=== PATIENT | female | born 1955 | race Caucasian/White ===

== ENCOUNTER 2019-03-23 20:50 | Inpatient (IN) | payer MEDICAID, MEDICARE ==
[~2019-03-23] VITALS: Ht 157.5 cm; Wt 133.4 kg
[~2019-03-23 20:50] MED LIST: ALBU0.633 IH; ASPI-605 PO; ENOX40DI SQ; FAMO20TA8 PO; FERR325T23 PO; GLUC1KIT IM; INSU100C10 SQ; INSU100V7 SQ; LEVO25TA7 PO; NITR100C6 PO; PIPE3.376 IV; VALS160T2 PO
--- NOTE | 2019-03-23 21:07 | NUR ---
BIBRA39 FROM [facility] C/O VAGINAL BLEEDING X 1 DAY AND RUQ ABD PAIN X 2 MONTHS. DENIES N/V/D. HAS TRACH AND WILSON IN PLACE ENGINEERING PSYCHOLOGIST. NO ACUTE DISTRESS NOTED. SKIN CLEAN, DRY, INTACT. MADE COMFORTABLE WITH WARM BLANKETS. ON MONITOR AND READY FOR EVAL.
[2019-03-23 21:14] LABS: BASOPHILS # (AUTO) 0.1 /CMM (0.0-0.2); BASOPHILS % (AUTO) 0.5 % (0.0-2.0); EOSINOPHILS % (AUTO) 4.3 % (0.0-6.0); HEMATOCRIT 32 % (33-45); HEMOGLOBIN 10.5 g/dL (11.5-14.8); LYMPHOCYTES # (AUTO) 3.3 /CMM (0.8-4.8); LYMPHOCYTES % (AUTO) 28.8 % (20.0-44.0); MEAN CORPUSCULAR HGB CONC 33 g/dl (31.0-36.0); MEAN CORPUSCULAR VOLUME 80 fL (82-100); MONOCYTES # (AUTO) 0.8 /CMM (0.1-1.30); MONOCYTES % (AUTO) 6.6 % (2.0-12.0); NEUTROPHILS # (AUTO) 6.8 /CMM (1.8-8.9); NEUTROPHILS % (AUTO) 59.8 % (43.0-81.0); PLATELET COUNT (AUTO) 348 /CMM (150-450); RED BLOOD CELL COUNT(AUTO) 4.03 MIL/uL (4.0-5.2); WHITE BLOOD COUNT (AUTO) 11.4 K/uL (4.3-11.0)
--- NOTE | 2019-03-23 21:30 | NUR ---
MATHEMATICIAN RESEARCH AT BEDSIDE
[2019-03-23 21:31] LABS: CALCIUM, SERUM 9.5 mg/dL (8.5-10.1); CREATININE 1.5 mg/dL (0.6-1.3); POTASSIUM 4.8 mmol/L (3.5-5.1)
--- NOTE | 2019-03-23 21:34 | NUR ---
URINE SPECIMEN SENT TO STAT LAB
[2019-03-23 21:37] LABS: APPEARANCE,URINE Slightly Cloudy (CLEAR); BILIRUBIN,URINE Negative (NEGATIVE); BLOOD, URINE Small Ery/uL (NEGATIVE); COLOR,URINE Light yellow (YELLOW); KETONES,URINE Negative (NEGATIVE); LEUKOCYTE ESTERASE ,URINE Moderate (NEGATIVE); NITRITE, URINE Positive (NEGATIVE); PROTEIN,URINE 30 mg/dl (NEGATIVE); UGLUCOSE Negative (NEGATIVE); UROBILINOGEN,URINE 0.2 EU/dL (0.2)
[2019-03-23 21:37] LABS: ALBUMIN 3.4 g/dL (3.4-5.0); BILIRUBIN,DIRECT 0.1 mg/dL (0.0-0.2); BILIRUBIN,TOTAL 0.1 mg/dL (0.2-1.0)
[2019-03-23 21:47] LABS: BACTERIA,URINE None seen /HPF (None Seen); SQUAMOUS EPITHELIAL CELL,UR Few /HPF (None Seen)
[2019-03-23] MEDS ORDERED: IV NS 0.9% 1,000 ML BAG IV ONE (22:00)
--- NOTE | 2019-03-23 22:19 | NUR ---
BED ASSIGNMENT 320-1
--- NOTE | 2019-03-23 22:30 | NUR ---
IV ACCESS OBTAINED. IVF INFUSING. PT EVERARDO WELL. WILL CONT TO MONITOR.
[2019-03-23] MEDS ORDERED: IV NS 0.9% 1,000 ML IV PRN (22:33)
[2019-03-23] MEDS ORDERED: MORPHINE SULFATE INJ 2 MG/ML DISP.SYRIN IV PRN (23:00)
[2019-03-23] MEDS ORDERED: ACETAMINOPHEN 325 MG TABLET PO PRN (23:00)
[2019-03-23] MEDS ORDERED: ALBUTEROL FS 2.5 MG/3 ML VIAL.NEB NEB PRN (23:00)
[2019-03-23] MEDS ORDERED: HYDROCODONE/APAP 5/325MG 1 EACH TABLET PO PRN (23:00)
[2019-03-23] MEDS ORDERED: MAG HYDROX/AL HYDROX/SIMETH 30 ML UDC PO PRN (23:00)
[2019-03-23] MEDS ORDERED: IPRATROPIUM NEB FS 0.5 MG/2.5 ML AMPUL.NEB NEB PRN (23:00)
[2019-03-23] MEDS ORDERED: DEXTROSE 50%-WATER 50 ML DISP.SYRIN IV PRN (23:00)
[2019-03-23] MEDS: CEFTRIAXONE 1 G in IV D5W 50 ML IV SCH (23:00)
[2019-03-23] MEDS ORDERED: BISACODYL SUPP (10 MG) 10 MG/SUPP.RECT SUPP.RECT RC PRN (23:00)
[2019-03-23] MEDS ORDERED: MAGNESIUM HYDROXIDE 30 ML UDC PO PRN (23:00)
[2019-03-23] MEDS ORDERED: ONDANSETRON HCL/PF 4 MG/2 ML VIAL IVP PRN (23:00)
--- NOTE | 2019-03-23 23:03 | NUR ---
REPORT GIVEN TO ROMEO PARKER FOR 320-1 MS
--- NOTE | 2019-03-23 23:10 | NUR ---
RECEIVED PATIENT FROM ED VIA GURNEY IN STABLE CONDITION. PATIENT NON AMBULATORY, AWAKE, AND A/O X4. SHILEY 6 TRACH INTACT AND PATENT. PATIENT ABLE TO VERBALIZE NEEDS WITH PMV IN PLACE. PERIPHERAL LINE IN RAC #20 GAUGE INTACT AND PATENT. FC 18FR INTACT, PATENT, AND DRAINING 300ML CLOUDY YELLOW URINE. PATIENT NOTED WITH MINIMAL AMOUNT DARK RED VAGINAL BLEEDING WITH NO CLOTS, SATURATING 20% OF PERINEAL PAD. PRN TYLENOL 650MG GIVEN FOR C/O RUQ 3/10 ACHING PAIN, WILL MONITOR FOR EFFECTIVENESS. ENCOURAGED USE OF CALL LIGHT FOR ASSISTANCE AND VERBALIZED GOOD UNDERSTANDING. BED IN LOW LOCK SETTING. ALL BELONGINGS KEPT NEAR BEDSIDE. WILL CONTINUE TO MONITOR.
--- NOTE | 2019-03-23 23:18 | NUR ---
[facility]
[2019-03-23 23:45] VITALS: BP 111/65
--- NOTE | 2019-03-23 23:49 | NUR ---
TRACH PT WAS ADMITTED TO [facility]. PT WAS ON ROOM AIR WITH PMV. SHE IS AWAKE AND ALERT. PLACED PT ON COOL AEROSOL AT 5L ON 28%. PMV PLACED AT BEDSIDE. WILL CONT TO MONITOR PT. Addendum: 03/24/19 at 0026 by REENA HERNANDEZ RT Amended: Links added.
[2019-03-24] MEDS ORDERED: CEFTRIAXONE 1 G VIAL ONE (00:17)
[2019-03-24] MEDS ORDERED: Z GUARD REMEDY 2 OZ OINT TP PRN (02:00)
[2019-03-24 06:19] LABS: BASOPHILS # (AUTO) 0.1 /CMM (0.0-0.2); BASOPHILS % (AUTO) 0.7 % (0.0-2.0); EOSINOPHILS % (AUTO) 4.1 % (0.0-6.0); HEMATOCRIT 28 % (33-45); HEMOGLOBIN 9.1 g/dL (11.5-14.8); LYMPHOCYTES # (AUTO) 2.8 /CMM (0.8-4.8); LYMPHOCYTES % (AUTO) 27.3 % (20.0-44.0); MEAN CORPUSCULAR HGB CONC 33 g/dl (31.0-36.0); MEAN CORPUSCULAR VOLUME 80 fL (82-100); MONOCYTES # (AUTO) 0.7 /CMM (0.1-1.30); MONOCYTES % (AUTO) 7.3 % (2.0-12.0); NEUTROPHILS # (AUTO) 6.2 /CMM (1.8-8.9); NEUTROPHILS % (AUTO) 60.6 % (43.0-81.0); PLATELET COUNT (AUTO) 327 /CMM (150-450); RED BLOOD CELL COUNT(AUTO) 3.48 MIL/uL (4.0-5.2); WHITE BLOOD COUNT (AUTO) 10.2 K/uL (4.3-11.0)
[2019-03-24 06:28] LABS: CALCIUM, SERUM 8.8 mg/dL (8.5-10.1); CREATININE 1.4 mg/dL (0.6-1.3); MAGNESIUM 2.3 mg/dL (1.8-2.4); PHOSPHORUS 4.3 mg/dL (2.5-4.9); POTASSIUM 5.1 mmol/L (3.5-5.1)
--- NOTE | 2019-03-24 06:41 | NUR ---
MS RN NOTES PATIENT AWAKE IN BED WITH NO DISTRESS NOTED. CALL LIGHT WITHIN REACH. ALL DUE MEDS GIVEN ORDERED WITH NO ASE NOTED. TRACH INTACT AND PATENT, ON 28% COOL AEROSOL AT 5LPM. PERIPHERAL LINE INTACT AND PATENT. NO C/O PAIN OR DISCOMFORT. PERINEAL PAD SATURATED WITH 10% BRIGHT RED BLOOD. FC INTACT AND DRAINED 850ML SLIGHTLY CLOUDY YELLOW URINE. BED IN LOW LOCK SETTING. ALL BELONGINGS AT NEAR BEDSIDE. WILL ENDORSE TO ONCOMING SHIFT.
[2019-03-24 08:00] VITALS: BP 117/49
--- NOTE | 2019-03-24 08:00 | NUR ---
RN NOTES RECEIVED PATIENT IN THE BED AWAKE , A/O X3 SITTING IN THE BED. PATIENT ON TRACHEA TUBE, BUT STABLE AND ABLE TO TALK AND EXPRESS SELF. NO ACUTE RESPIRATORY DISTRESS, V/S TAKEN WNL, BS-145 MG/DL NO COVERAGE GIVEN BECAUSE PATIENT NPO OF CT ABDOMEN EXAMINATION. ADMINISTERED SCHEDULED MEDICATION. PATIENT OBESE, ASSIST TURN AND REPOSTION Q 2 HR, NO VAGINAL BLEEDING AT THIS TIME, F/C DARNING LIGHT YELLOW OUTPUT, IV ACCESS ON RIGHT FA INFUSING NS AT 75 ML/HR INTACT . PATIENT REFUSED PAIN. CALL LIGHT WITHIN TO REACH, SAFETY PRECAUTION MAINTAINED ALL THE TIME.
[2019-03-24] MEDS ORDERED: HEPARIN SODIUM, PORCINE 5000 UNITS/1 ML VIAL SQ SCH (09:00)
[2019-03-24] MEDS: BLOOD SUGAR DIAGNOSTIC 1 EACH STRIP IN SCH ×4 (09:19→21:45)
[2019-03-24] MEDS: ASPIRIN EC 81 MG TABLET.DR PO SCH ×2 (09:43→18:04)
[2019-03-24] MEDS: FAMOTIDINE (20 MG) 20 MG TABLET PO SCH (09:43)
[2019-03-24] MEDS: FERROUS SULFATE (325 MG) 325 MG/TAB TABLET PO SCH (09:43)
[2019-03-24] MEDS: LEVOTHYROXINE SODIUM 25 MCG TABLET PO SCH (09:43)
[2019-03-24] MEDS: DOCUSATE SODIUM 100 MG CAPSULE PO SCH ×2 (09:43→18:07)
[2019-03-24] MEDS: Z GUARD REMEDY 2 OZ OINT TP SCH ×2 (09:44→21:45)
--- NOTE | 2019-03-24 12:02 | NUR ---
WOUND CARE CONSULT: PT PRESENTS WITH MOISTURE ASSOCIATED SKIN IRRITATION TO RT ABDOMINAL FOLD, SACRAL, BUTTOCK AND POSTERIOR THIGH SCARRING, PRESENT ON ADMISSION. NO VAGINAL BLEEDING NOTED AT THIS TIME. WILSON CATH NOTED. TRACH NOTED. PT ABLE TO ASSIST WITH TURNING AND REPOSITIONING IN BED. PT IS CONTINENT AT THIS TIME WITH WILSON. PT ON HOLDEN ISOFLEX LOW AIRLOSS BED. RECOMMENDATIONS MADE FOR SKIN PROTECTION. DISCUSSED WITH NURSING STAFF. WILL SEE PRN. Addendum: 03/24/19 at 1205 by JUDITH FREY WNDNU Amended: Links added.
--- NOTE | 2019-03-24 12:40 | NUR ---
RN NOTES PATIENT HYDROELECTRIC PLANT MAINTAINER FOR CT OF ABDOMEN WO CONTRAST. PATIENT STABLE, FIX TRACHEA OXYGENATION CONNECTED WITH O2 TANK MANUALLY HELP OF RT. CONTINUED MONITORING.
--- NOTE | 2019-03-24 13:00 | NUR ---
RN NOTES PATIENT BACK FROM CT, STABLE CONNECTED BACK TO MAIN TRACHEA O2, NO ACUTE REPARATORY DISTRESS, BS-111 MG/DL NO COVERAGE GIVEN, LUNCH OFFERED PATIENT TOLERATED 100 %. ASSIST PATIENT TURN AND REPOSTION Q 2 HR. PATIENT REFUSED PAIN.
[2019-03-24 16:00] VITALS: BP 131/51
--- NOTE | 2019-03-24 18:30 | NUR ---
RN NOTES BS-123 MG/DL NO COVERAGE GIVEN, PATIENT TOLERATED 20% ON DINNER, ADMINISTERED SCHEDULED MEDICATION, V/S STABLE, F/C DRAINING LIGHT YELLOW OUTPUT, ASSIST TURN AND REPOSTION Q 2 HR, CALL LIGHT WITHIN TO REACH. ENDORSED ONCOMING NURSE FOLLOW PLAN OF CARE.
--- NOTE | 2019-03-24 19:57 | NUR ---
ROMEO INITIAL NOTES: RECEIVED REPORT FROM LAMINE WALTERS. PT IN BED, AWAKE, A/O X4, ON 5L COOL AEROSOL, FIO2 20%, TRACHE, SHILEY #6. RESPIRATIONS EVEN AND UNLABORED. PT ABLE TO SPEAK WITH PASSY-ABRAHAM VALVE. ABLE TO MAKE HER NEEDS KNOWN. RECEIVED WITH WILSON CATHETER, DRAINING TO YELLOW COLORED URINE. IV ACCESS PATENT AND FLUSHING WELL, ON HL. BLE OFFLOADED. DISCUSSED PLAN OF CARE TO PT. SAFETY PRECAUTIONS FOR FALL INITIATED, CALL LIGHT IN REACH, WILL CONTINUE MONITORING PT. Addendum: 03/25/19 at 0027 by KARLEE PA RN CORRECTION OF ENTRY: FIO2 28%
--- NOTE | 2019-03-24 19:57 | NUR ---
RN INITIAL NOTES: RECEIVED REPORT FROM LAMINE WALTERS. PT IN BED, AWAKE, A/O X4, ON 5L COOL AEROSOL, FIO2 28%, TRACHE, SHILEY #6. RESPIRATIONS EVEN AND UNLABORED. PT ABLE TO SPEAK WITH PASSY-ABRAHAM VALVE. ABLE TO MAKE HER NEEDS KNOWN. RECEIVED WITH WILSON CATHETER, DRAINING TO YELLOW COLORED URINE. IV ACCESS PATENT AND FLUSHING WELL, ON HL. BLE OFFLOADED. DISCUSSED PLAN OF CARE TO PT. SAFETY PRECAUTIONS FOR FALL INITIATED, CALL LIGHT IN REACH, WILL CONTINUE MONITORING PT.
[2019-03-24 20:00] VITALS: BP 105/49
[2019-03-24] MEDS: INSULIN GLARGINE, 100 UNIT/ML CARTRIDGE SQ SCH (21:45)
--- NOTE | 2019-03-24 21:46 | NUR ---
ACCU CHECK: BLOOD SUGAR 117, NO INSULIN COVERAGE GIVEN PER SLIDING SCALE, PT REFUSED FOR LANTUS
--- NOTE | 2019-03-24 22:03 | NUR ---
RN NOTES: P[T CONNECTED TO SPO2 CONTINUOS MONITORING SPO2 IS 98%
[2019-03-24] MEDS: CEFTRIAXONE 1 G in IV D5W 50 ML IV SCH (22:09)
--- NOTE | 2019-03-24 22:30 | NUR ---
RN NOTES: PT REQUESTED TO BE SUCTION, RT AT BED SIDE PERFORMING SUCTION VIA TRACHE
--- NOTE | 2019-03-25 00:25 | NUR ---
RN NOTES: PT SLEEPING, APPEARS CALM AND COMFORTABLE, NO FACIAL GRIMACE NOTED, SPO2 SHOWS 95%, HR 72. WILL CONTINUE MONITORING PT.
[2019-03-25] MEDS: BLOOD SUGAR DIAGNOSTIC 1 EACH STRIP IN SCH ×4 (06:14→21:40)
[2019-03-25] MEDS: INSULIN REGULAR, HUMAN 100 UNIT/ML 3 ML VIAL SQ PRN (06:16)
[2019-03-25] MEDS: HEPARIN SODIUM, PORCINE 5000 UNITS/1 ML VIAL SQ SCH ×2 (06:17→17:11)
--- NOTE | 2019-03-25 06:18 | NUR ---
ACCU CHECK 135: BLOOD SUGAR CHECK PERFORMED RESULT IS 135, 2UNITS OF INSULIN GIVEN PER SLIDING SCALE.
[2019-03-25] MEDS: LEVOTHYROXINE SODIUM 25 MCG TABLET PO SCH (06:33)
[2019-03-25 06:38] LABS: CREATININE 1.2 mg/dL (0.6-1.3); MAGNESIUM 2.3 mg/dL (1.8-2.4); POTASSIUM 4.3 mmol/L (3.5-5.1)
--- NOTE | 2019-03-25 06:46 | NUR ---
RN CLOSING NOTES: PT IN BED, AWAKE, TOLERATING COOL AEROSOL. IV ACCESS REMAINS PATENT AND FLUSHING WELL, ON HL. DENIES ANY SOB OR CHEST PAIN. WILSON CATHETER REMAINS IN PLACED. BAG EMPTIED BY CONTINUOUS STILL OPERATOR. VS REMAINS STABLE, NEEDS ATTENDED. SAFETY PRECAUTIONS FOR FALL REMAINS ENGAGED, CALL LIGHT IN REACH, WILL ENDORSE TO DAY RN FOR CONTINUITY OF CARE.
[2019-03-25 06:59] LABS: BASOPHILS # (AUTO) 0.1 /CMM (0.0-0.2); BASOPHILS % (AUTO) 0.6 % (0.0-2.0); EOSINOPHILS % (AUTO) 3.9 % (0.0-6.0); HEMATOCRIT 27 % (33-45); HEMOGLOBIN 8.9 g/dL (11.5-14.8); LYMPHOCYTES # (AUTO) 2.8 /CMM (0.8-4.8); LYMPHOCYTES % (AUTO) 31.8 % (20.0-44.0); MEAN CORPUSCULAR HGB CONC 33 g/dl (31.0-36.0); MEAN CORPUSCULAR VOLUME 79 fL (82-100); MONOCYTES # (AUTO) 0.7 /CMM (0.1-1.30); MONOCYTES % (AUTO) 7.6 % (2.0-12.0); NEUTROPHILS % (AUTO) 56.1 % (43.0-81.0); PLATELET COUNT (AUTO) 309 /CMM (150-450); RED BLOOD CELL COUNT(AUTO) 3.43 MIL/uL (4.0-5.2); WHITE BLOOD COUNT (AUTO) 8.9 K/uL (4.3-11.0)
--- NOTE | 2019-03-25 07:35 | NUR ---
MS/RN OPENING NOTE PATIENT IN BED IN STABLE CONDITION. A/O X 4. NO SIGNS OF ACUTE DISTRESS. NO COMPLAIN OF PAIN OR DISCOMFORT. TRACH DEPENDENT, ON COOL AEROSOL WITH FIO2 OF 28%, TOLERATING WELL. ALL NEEDS ATTENDED TO. CALL LIGHT WITHIN REACH. WILL CONTINUE TO MONITOR TO ENSURE SAFETY.
[2019-03-25 08:00] VITALS: BP 119/59
[2019-03-25 08:02] VITALS: BP 119/59
[2019-03-25] MEDS: FAMOTIDINE (20 MG) 20 MG TABLET PO SCH (08:10)
[2019-03-25] MEDS: ASPIRIN EC 81 MG TABLET.DR PO SCH (08:10)
[2019-03-25] MEDS: FERROUS SULFATE (325 MG) 325 MG/TAB TABLET PO SCH (08:10)
[2019-03-25] MEDS: DOCUSATE SODIUM 100 MG CAPSULE PO SCH ×2 (08:10→17:08)
[2019-03-25] MEDS: Z GUARD REMEDY 2 OZ OINT TP SCH ×2 (08:11→21:50)
--- NOTE | 2019-03-25 11:00 | NUR ---
MS/RN SEEN AND EXAMINED BY DR MORROW.
[2019-03-25 16:00] VITALS: BP 116/56
--- NOTE | 2019-03-25 18:10 | NUR ---
MS/RN CLOSING NOTE PATIENT IN BED IN STABLE CONDITION. A/O X 4. NO SIGNS OF ACUTE DISTRESS. NO COMPLAIN OF PAIN OR DISCOMFORT. TRACH DEPENDENT ON COOL AEROSOL WITH FIO2 OF 28% TOLERATING WELL, INNER CANNULA CHANGED BY R.T. TOLERATED WELL. ALL NEEDS ATTENDED TO. CALL LIGHT WITHIN REACH. WILL ENDORSE TO NEXT SHIFT FOR CONTINUITY OF CARE.
--- NOTE | 2019-03-25 19:15 | NUR ---
rn initial notes: received report from mihaela tran. pt in bed, awake, a/o x4, with trache on cool aerosol 5L fio2 28%, on spo2 monitoring showing 95%. pt claimed to have no pain, but admits she's feeling sore on ruq area. offered medication but pt refused. she also reported that her iv access seems to be swollen, requesting for new iv line. upon assessment, its really difficult to determine if there's any presence of swelling on the site because of the nature of pt's skin and built. informed pt if she's uncomfortable with her iv, it will be remove and will insert a new one, which pt agree. discussed plan of care to pt. safety precautions for fall initiated, call light in reach, will continue monitoring pt.
[2019-03-25 20:00] VITALS: BP 143/61
--- NOTE | 2019-03-25 20:00 | NUR ---
RN NOTES: REINSERTED NEW IV ACCESS WITH THE HELP OF VEIN FINDER, NEW IV SITE ON LFA USING G, WITH GOOD BLOOD RETURN NOTED, TRANSPARENT DRESSING APPLIED, PROPER LABEL ATTACHED.
[2019-03-25 20:16] VITALS: BP 143/61
--- NOTE | 2019-03-25 21:30 | NUR ---
chelsea notes: pt's urine has very strong odor, urine culture secured and prelim result gram negative rods Addendum: 03/25/19 at 2315 by KARLEE PA RN correction of entry: final culture in placed, result is mixed contaminants, please see microbiology tab
--- NOTE | 2019-03-25 21:40 | NUR ---
accu check: blood sugar result is 124, no insulin coverage given per sliding scale.
[2019-03-25] MEDS: INSULIN GLARGINE, 100 UNIT/ML CARTRIDGE SQ SCH (21:41)
--- NOTE | 2019-03-25 22:00 | NUR ---
RN NOTES: OFFERED TO BE REPOSITION AT THIS TIME. PT REFUSED, STATED SHE'S SCARED OF TURNING ON SIDE BECAUSE SHE'S FEELING SORE ON HER ABDOMEN AREA. INFORMED PT THAT RN AND RUBBER GOODS FINISHER WILL ASSIST HER IN REPOSITIONING TO EASEN UP THE PROCESS. PT STILL REFUSED. EDUCATE PT REGARDING IMPORTANCE OF REPOSITIONING IN ORDER TO PREVENT DEVELOPMENT OF REDNESS TURNED INTO PRESSURE ULCERS.
[2019-03-25] MEDS: CEFTRIAXONE 1 G in IV D5W 50 ML IV SCH (22:04)
--- NOTE | 2019-03-25 23:06 | NUR ---
chelsea notes: sponge bath provided by terminal make up operator at this time.
--- NOTE | 2019-03-26 | NUR ---
RN NOTES: PT REFUSED TO BE REPOSITION AT THIS TIME, STATED SHE'S COMFORTABLE IN HER POSITION. EDUCATION PROVIDED TO PT REGARDING TURNING AND REPOSITIONING Q2HRS TO PREVENT PRESSURE ULCER DEVELOPMENT.
--- NOTE | 2019-03-26 05:00 | NUR ---
RN NOTES: PT CALLED AND COMPLAINED THAT HER NEW IV SITE IS HURTING CLAIMED SHE'S UNCOMFORTABLE, AND REQUESTING TO HAVE IT CHANGE. PT HARD TO STICK. USING VEIN FINDER, I WAS ABLE TO INSERT NEW IV ACCESS ON RIGHT UPPER ARM USING G24, WITH GOOD BLOOD RETURN NOTED, PROPER LABEL ATTACHED. PT REQUESTING TO SWITCH THE IV ATB INTO ORAL PILL, AND IF THAT'S NOT POSSIBLE, TO HAVE A MIDLINE. WILL DEFER TO MD.
[2019-03-26] MEDS: BLOOD SUGAR DIAGNOSTIC 1 EACH STRIP IN SCH ×3 (05:58→16:23)
[2019-03-26] MEDS: HEPARIN SODIUM, PORCINE 5000 UNITS/1 ML VIAL SQ SCH ×2 (05:59→17:08)
[2019-03-26] MEDS: INSULIN REGULAR, HUMAN 100 UNIT/ML 3 ML VIAL SQ PRN (06:00)
--- NOTE | 2019-03-26 06:00 | NUR ---
ACCU CHECK 131: BLOOD SUGAR CHECK AND RESULT IS 131, PT REFUSED FOR INSULIN STATED HER GLUCOSE ONLY UP BY 1 POINT. EDUCATION PROVIDED TO PT. WILL CONTINUE MONITORING PT FOR ANY S/S OF HYPOGLYCEMIA
--- NOTE | 2019-03-26 06:08 | NUR ---
RN NOTES: OFFERED BED BATH TO PT BUT PT REFUSED, STATED SHE WOULD LIKE TO HAVE IT DONE AFTER BREAKFAST.
--- NOTE | 2019-03-26 07:03 | NUR ---
RN CLOSING NOTES: PT IN BED, AWAKE, REMAINS CONNECTED TO CONTINUOUS PULSE OXIMETRY, SPO2 95% ON 5L COOL AEROSOL/FIO2 28%. IV ACCES REMAINS PATENT AND FLUSHING WELL, ON HL. PT DENIES ANY PAIN OR DISCOMFORT AT THIS TIME. WILSON CATHETER REMAINS IN PLACED, BAG EMPTIED BY FUNERAL LOCATION MANAGER,, URINE REMAINS TO HAVE STRONG ODOR. NO VAGINAL BLEEDING NOTED THROUGHOUT THE SHIFT. BLE OFFLOADED. SAFETY PRECAUTIONS FOR FALL INITIATED, CALL LIGHT IN REACH, WILL ENDORSE TO DAY RN FOR CONTINUITY OF CARE.
[2019-03-26 08:00] VITALS: BP 126/57
--- NOTE | 2019-03-26 08:00 | NUR ---
MS ROMEO AM notes: Received pt in bed, awake, a/o x4, with trache on cool aerosol 5L fio2 28%, on spo2 monitoring showing 95%. pt claimed to have no pain,With BERNARD heplock intact and patent.With orders for discharge back to [facility]. Discussed plan of care to pt. safety precautions for fall initiated, call light in reach, will continue monitoring pt.
[2019-03-26] MEDS: DOCUSATE SODIUM 100 MG CAPSULE PO SCH ×2 (08:20→16:23)
[2019-03-26] MEDS: ASPIRIN EC 81 MG TABLET.DR PO SCH (08:20)
[2019-03-26] MEDS: LEVOTHYROXINE SODIUM 25 MCG TABLET PO SCH (08:20)
[2019-03-26] MEDS: FERROUS SULFATE (325 MG) 325 MG/TAB TABLET PO SCH (08:20)
[2019-03-26] MEDS: Z GUARD REMEDY 2 OZ OINT TP SCH (08:21)
[2019-03-26] MEDS: FAMOTIDINE (20 MG) 20 MG TABLET PO SCH (08:21)
--- NOTE | 2019-03-26 12:05 | NUR ---
PT'S BS IS 137 AND PT REFUSED INSULIN INSPITE OF EXPLAINING ITS RISKS AND BENEFITS.
--- NOTE | 2019-03-26 12:38 | NUR ---
CALLED IN REPORT TO NURSEDEVI OF [facility] ([phone].INSTRUCTED TO FOLLOW UP WITH MILLED RUBBER TENDER REGARDING PT'S VAGINAL BLEEDING FOLLOW UP WHEREIN PT NEVER HAD EPISODE IN OUR UNIT.ALSO INSTRUCTED TO FOLLOW UP WITH PMD IN ONE WEEK WELL.GAVE INSTRUCTIONS TO ADMINISTER KEFLEX 500 MG PO TID FOR 4 DAYS FOR UTI PRESCRIBED.
--- NOTE | 2019-03-26 13:07 | NUR ---
DISCHARGE INSTRUCTIONS GIVEN TO THE PT AND MENTIONED ABOUT KEFLEX 500 MG PO TID FOR 4 DAYS FOR UTI. PT VERBALIZED HAVING DIARRHEA WITH KEFLEX INSPITE OF EXPLAINING THAT SHE ONLY HAS IODINE AND LEMON ALLERGY.PT REFUSED TO TAKE THE KEFLEX SAYING SHE HAS DIARRHEA WITH KEFLEX.UPDATED PT'S ALLERGY PROFILE AND PAGED DR NORTH.AWAITING TO RETURN CALL.
--- NOTE | 2019-03-26 13:30 | NUR ---
PT DIDN'T HAVE ANY REACTION WITH ROCEPHIN IV.NO DIARRHEA OR ADVERSE REACTION EPISODE DURING ROCEPHIN IV ADMINISTRATION.
[2019-03-26 16:00] VITALS: BP 140/51
--- NOTE | 2019-03-26 19:00 | NUR ---
DISCHARGED PT TO [facility] VIA AMBULANCE WITH STABLE V/S,DENYING ANY PAIN OR DISTRESS WITH CONTINUOUS TRACH COOL AEROSOL AT 5L/MIN AND FI02 AT 28% WITH NO SOB.CALLED AND GAVE REPORT TO ROMEO QUINONEZ OF [facility] AND MENTIONED ABOUT THE BACTRIM DS PO ATB FOR UTI.WITH WILSON CATH REMAINS AND EMPTIED AT 800 ML YELLOW URINE.IV H/L REMOVED TO BERNARD WITHOUT BLEEDING NOTED.
== END 2019-03-26 18:50 | DRG 463 ==
LOC: ER 21:00 → MED 22:26
PROVIDERS: ADMIT Nurse Practitioner Acute Care; ATTEND Nurse Practitioner Acute Care
DX: N39.0 Urinary tract infection, site not specified (principal); N17.0 Acute kidney failure with tubular necrosis; J96.10 Chronic respiratory failure, unspecified whether with hypoxia or hypercapnia; E44.0 Moderate protein-calorie malnutrition; Z93.0 Tracheostomy status; N93.9 Abnormal uterine and vaginal bleeding, unspecified; D68.59 Other primary thrombophilia; E11.9 Type 2 diabetes mellitus without complications; E03.9 Hypothyroidism, unspecified; I10 Essential (primary) hypertension; J44.9 Chronic obstructive pulmonary disease, unspecified; K21.9 Gastro-esophageal reflux disease without esophagitis; Z99.3 Dependence on wheelchair; Z90.49 Acquired absence of other specified parts of digestive tract; Z98.890 Other specified postprocedural states; Z91.041 Radiographic dye allergy status; Z79.4 Long term (current) use of insulin; Z79.82 Long term (current) use of aspirin; Z87.891 Personal history of nicotine dependence; Z74.01 Bed confinement status; N28.1 Cyst of kidney, acquired; K59.09 Other constipation; B96.89 Other specified bacterial agents as the cause of diseases classified elsewhere; Z74.09 Other reduced mobility; E66.2 Morbid (severe) obesity with alveolar hypoventilation; Z68.43 Body mass index [BMI] 50.0-59.9, adult
CPT/HCPCS: 31720; 36415; 71045-TC; 76856-TC; 80048-TC; 80061-TC; 80076-TC; 81000-TC; 82962-TC; 83690-TC; 83735-TC; 84100-TC; 85025-TC; 85730-TC; 87081-TC; 87086-TC; 94640-TC; 94760-TC; 94799-TC; A4623; A7526; G0378; J0696; J1644; J1815; J7030; J7060

== ENCOUNTER 2019-11-05 00:18 | Emergency (ER) | payer MEDICARE, OTHER ==
[~2019-11-05] VITALS: Ht 172.7 cm; Wt 136.1 kg
--- NOTE | 2019-11-05 00:30 | NUR ---
PT AAOX3. BIB88. PER RA PT WAS DESAT @ 65% DESPITE 02 VIA NC @ 2LPM. PT HAS A TRACHEOSTOMY. PT WAS PLACED ON A NON REBREATHER BY RA AT 15L SAT 100%. PT PLACED ON MONITOR AND PULSE OX. VSS. NO ACUTE DISTRESS NOTED.
--- NOTE | 2019-11-05 00:40 | NUR ---
RT AT BEDSIDE. PT SUCTIONED AND RR EVEN AND UNLABORED AT THE MOMENT. VSS. PLACED ON 6L. SAT 100%. PT ALERT AND FOLLOWING COMMANDS.
--- NOTE | 2019-11-05 00:45 | NUR ---
PT SAT 100. PT RESPONSIVE. VSS.
--- NOTE | 2019-11-05 00:50 | NUR ---
DATA SUPPORT SPECIALIST AT BEDSIDE FOR LABS.
[2019-11-05 00:55] LABS: BASOPHILS % (AUTO) 0.4 % (0.0-2.0); EOSINOPHILS % (AUTO) 1.6 % (0.0-6.0); HEMATOCRIT 34 % (33-45); HEMOGLOBIN 10.8 g/dL (11.5-14.8); LYMPHOCYTES # (AUTO) 2.6 /CMM (0.8-4.8); LYMPHOCYTES % (AUTO) 24.6 % (20.0-44.0); MEAN CORPUSCULAR HGB CONC 32 g/dl (31.0-36.0); MEAN CORPUSCULAR VOLUME 83 fL (82-100); MONOCYTES # (AUTO) 0.9 /CMM (0.1-1.30); MONOCYTES % (AUTO) 8.7 % (2.0-12.0); NEUTROPHILS # (AUTO) 6.8 /CMM (1.8-8.9); NEUTROPHILS % (AUTO) 64.7 % (43.0-81.0); PLATELET COUNT (AUTO) 242 /CMM (150-450); RED BLOOD CELL COUNT(AUTO) 4.04 MIL/uL (4.0-5.2); WHITE BLOOD COUNT (AUTO) 10.5 K/uL (4.3-11.0)
[2019-11-05 01:07] LABS: CARBON DIOXIDE 27 mmol/L (21-32); CHLORIDE 101 mmol/L (98-107); CREATININE 1.4 mg/dL (0.6-1.3); GLUCOSE 307 mg/dL (74-106); POTASSIUM 4.6 mmol/L (3.5-5.1); SODIUM SERUM 137 mmol/L (136-145); UREA NITROGEN, BLOOD 33 mg/dL (7-18)
--- NOTE | 2019-11-05 01:17 | NUR ---
Patient is resting comfortably in bed. Easily aroused. VSS.
[2019-11-05 01:21] LABS: ALANINE AMINOTRANSFERASE 53 U/L (12-78); ALBUMIN 3.3 g/dL (3.4-5.0); ALKALINE PHOSPHATASE 134 U/L (46-116); ASPARTATE AMINOTRANSFERASE 46 U/L (15-37); B-TYPE NATRIURETIC PEPTIDE 404 PG/ML (0-125); BILIRUBIN,TOTAL 0.3 mg/dL (0.2-1.0); TOTAL PROTEIN, SERUM 8.2 g/dL (6.4-8.2)
--- NOTE | 2019-11-05 01:32 | NUR ---
[facility] CALLED FOR TRANSPORT. ETA 0330. TRIP# [id number]
--- NOTE | 2019-11-05 02:30 | NUR ---
IV removed. Catheter intact and site benign. Pressure and 4x4 applied to site. No bleeding noted.
--- NOTE | 2019-11-05 02:53 | NUR ---
PT TRANSFERED BACK.
[2019-11-05 02:54] VITALS: BP 128/71
== END 2019-11-05 02:54 | disposition home or self-care (01) ==
LOC: ER 00:20
DX: J98.09 Other diseases of bronchus, not elsewhere classified (principal); I10 Essential (primary) hypertension; E11.9 Type 2 diabetes mellitus without complications; J44.9 Chronic obstructive pulmonary disease, unspecified; Z93.0 Tracheostomy status; Z90.49 Acquired absence of other specified parts of digestive tract; Z98.890 Other specified postprocedural states; Z88.1 Allergy status to other antibiotic agents; Z88.6 Allergy status to analgesic agent; Z79.4 Long term (current) use of insulin; Z79.899 Other long term (current) drug therapy; Z79.82 Long term (current) use of aspirin
CPT/HCPCS: 36415; 71045-TC; 80048-TC; 80076-TC; 83605-TC; 83880; 84484-TC; 85025-TC; 85730-TC; 87040-TC

== ENCOUNTER 2019-12-15 09:39 | Emergency (ER) | payer MEDICARE, OTHER ==
[~2019-12-15] VITALS: Ht 157.5 cm; Wt 137.0 kg
--- NOTE | 2019-12-15 09:40 | NUR ---
PT [facility]IB[facility] C/O COUGH AND SORE THROAT X TODAY, PT IS AAOX4, NOT IN RESPIRATORY DISTRESS, HOOKED TO MEDIA SALES REPRESENTATIVE, KEPT RESTED AND COMFORTABLE, WILL CONTINUE TO MONITOR.
--- NOTE | 2019-12-15 09:45 | NUR ---
IV LINE ESTABLISHED, BLOOD DRAWN AND SENT TO LAB.
--- NOTE | 2019-12-15 09:48 | NUR ---
PT URINE SPECIMEN COLLECTED AND SENT TO LAB.
--- NOTE | 2019-12-15 09:50 | NUR ---
AT BEDSIDE FOR EVAL.
[2019-12-15 10:14] LABS: BASOPHILS # (AUTO) 0.1 /CMM (0.0-0.2); BASOPHILS % (AUTO) 1.2 % (0.0-2.0); EOSINOPHILS % (AUTO) 3.2 % (0.0-6.0); HEMATOCRIT 32 % (33-45); HEMOGLOBIN 10.5 g/dL (11.5-14.8); LYMPHOCYTES # (AUTO) 2.7 /CMM (0.8-4.8); LYMPHOCYTES % (AUTO) 29.7 % (20.0-44.0); MEAN CORPUSCULAR HGB CONC 33 g/dl (31.0-36.0); MEAN CORPUSCULAR VOLUME 82 fL (82-100); MONOCYTES # (AUTO) 0.6 /CMM (0.1-1.30); MONOCYTES % (AUTO) 6.1 % (2.0-12.0); NEUTROPHILS # (AUTO) 5.5 /CMM (1.8-8.9); NEUTROPHILS % (AUTO) 59.8 % (43.0-81.0); PLATELET COUNT (AUTO) 316 /CMM (150-450); RED BLOOD CELL COUNT(AUTO) 3.93 MIL/uL (4.0-5.2); WHITE BLOOD COUNT (AUTO) 9.1 K/uL (4.3-11.0)
[2019-12-15 10:22] LABS: CARBON DIOXIDE 28 mmol/L (21-32); CHLORIDE 104 mmol/L (98-107); CREATININE 1.4 mg/dL (0.6-1.3); GLUCOSE 140 mg/dL (74-106); POTASSIUM 4.3 mmol/L (3.5-5.1); SODIUM SERUM 138 mmol/L (136-145); UREA NITROGEN, BLOOD 37 mg/dL (7-18)
[2019-12-15 10:34] LABS: ALANINE AMINOTRANSFERASE 24 U/L (12-78); ALBUMIN 3.4 g/dL (3.4-5.0); ALKALINE PHOSPHATASE 97 U/L (46-116); ASPARTATE AMINOTRANSFERASE 15 U/L (15-37); B-TYPE NATRIURETIC PEPTIDE 186 PG/ML (0-125); BILIRUBIN,DIRECT 0.1 mg/dL (0.0-0.2); BILIRUBIN,TOTAL 0.3 mg/dL (0.2-1.0); TOTAL PROTEIN, SERUM 7.8 g/dL (6.4-8.2)
[2019-12-15 10:35] LABS: APPEARANCE,URINE CLOUDY (CLEAR); COLOR,URINE Light yellow (YELLOW)
[2019-12-15 10:36] LABS: BILIRUBIN,URINE NEGATIVE (NEGATIVE); KETONES,URINE NEGATIVE (NEGATIVE); NITRITE, URINE POSITIVE (NEGATIVE); PROTEIN,URINE 1+ mg/dl (NEGATIVE); UGLUCOSE NEGATIVE (NEGATIVE); UROBILINOGEN,URINE NORMAL EU/dL (0.2)
[2019-12-15 10:40] LABS: BLOOD, URINE TRACE Ery/uL (NEGATIVE); LEUKOCYTE ESTERASE ,URINE MODERATE (NEGATIVE)
[2019-12-15 10:41] LABS: BACTERIA,URINE Moderate /HPF (None Seen)
[2019-12-15 10:42] LABS: SQUAMOUS EPITHELIAL CELL,UR Few /HPF (None Seen); URINE AMORPHOUS PHOSPHATES Moderate /HPF (None Seen)
--- NOTE | 2019-12-15 11:33 | NUR ---
CALLED [facility] FOR TRANSPORT TO [facility]. ETA 1400. TRIP NUMER [id number].
--- NOTE | 2019-12-15 11:44 | NUR ---
IV removed. Catheter intact and site benign. Pressure and 4x4 applied to site. No bleeding noted. Patient discharged to [facility] in stable condition. Written and verbal after care instructions given. Patient verbalizes understanding of instruction.
--- NOTE | 2019-12-15 11:49 | NUR ---
SPOKED TO [facility] FOR PT TRANSFER BACK.
[2019-12-15 15:43] VITALS: BP 113/61
== END 2019-12-15 15:44 | disposition home or self-care (01) ==
LOC: ER 09:40
DX: J02.9 Acute pharyngitis, unspecified (principal); R07.89 Other chest pain; I10 Essential (primary) hypertension; J44.9 Chronic obstructive pulmonary disease, unspecified; E11.9 Type 2 diabetes mellitus without complications; Z93.0 Tracheostomy status; Z90.49 Acquired absence of other specified parts of digestive tract; Z98.890 Other specified postprocedural states; Z88.1 Allergy status to other antibiotic agents; Z88.8 Allergy status to other drugs, medicaments and biological substances; Z79.82 Long term (current) use of aspirin; Z79.899 Other long term (current) drug therapy; Z79.4 Long term (current) use of insulin
CPT/HCPCS: 36415; 71045-TC; 80048-TC; 80076-TC; 81000-TC; 83605-TC; 83880; 84484-TC; 85025-TC; 85730-TC; 87040-TC; 87086-TC; 87186-TC